=== PATIENT | female | born 2005 | race Caucasian/White ===

== ENCOUNTER 2023-05-14 19:34 | Emergency (ER) | payer SELFPAY ==
[~2023-05-14] VITALS: Ht 167 cm; Wt 127.0 kg
[2023-05-14 20:03] LABS: BASOPHILS # (AUTO) 0.1 10^3/uL (0.0-0.1); BASOPHILS % (AUTO) 1 % (0-10); EOSINOPHILS # (AUTO) 0.3 10^3/uL (0.0-0.3); EOSINOPHILS % (AUTO) 2 % (0-10); HEMATOCRIT 42 % (35-52); HEMOGLOBIN 13.9 g/dL (11.5-16.0); LYMPHOCYTES # (AUTO) 2.6 10^3/uL (1.0-4.0); LYMPHOCYTES % (AUTO) 20 % (12-44); MEAN CORPUSCULAR HEMOGLOBIN 28 pg (25-34); MEAN CORPUSCULAR HGB CONC 33 g/dL (32-36); MEAN CORPUSCULAR VOLUME 87 fL (80-99); MEAN PLATELET VOLUME 9.8 fL (9.0-12.2); MONOCYTES # (AUTO) 1.1 10^3/uL (0.0-1.0); MONOCYTES % (AUTO) 8 % (0-12); NEUTROPHILS # (AUTO) 8.7 10^3/uL (1.8-7.8); NEUTROPHILS % (AUTO) 68 % (42-75); PLATELET COUNT 380 10^3/uL (130-400); WHITE BLOOD COUNT 12.9 10^3/uL (4.3-11.0)
[2023-05-14 20:09] LABS: CHLORIDE 105 MMOL/L (98-107); POTASSIUM 4.1 MMOL/L (3.6-5.0); SODIUM 136 MMOL/L (135-145)
[2023-05-14 20:10] LABS: AMYLASE 44 U/L (25-125); CALCIUM 9.5 MG/DL (8.5-10.1)
[2023-05-14 20:11] LABS: GLUCOSE 155 MG/DL (70-105); TOTAL PROTEIN 7.5 GM/DL (6.4-8.2)
[2023-05-14 20:12] LABS: CARBON DIOXIDE 23 MMOL/L (21-32)
[2023-05-14 20:13] LABS: BILIRUBIN,TOTAL 0.3 MG/DL (0.1-1.0)
[2023-05-14 20:15] LABS: ALKALINE PHOSPHATASE 117 U/L (40-136); GFR ESTIMATED 128
[2023-05-14 20:16] LABS: BUN/CREATININE RATIO 13
[2023-05-14 20:18] LABS: ALANINE AMINOTRANSFERASE 74 U/L (0-55)
[2023-05-14 20:19] LABS: LIPASE 13 U/L (8-78)
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
[2023-05-14] MEDS ORDERED: IOHEXOL 350 MG/ML 100 ML (OMNIPAQUE 350) VIAL IV ONE (20:45)
[2023-05-14] MEDS ORDERED: NS 100 ML (IVPB) BAG IV ONE (20:45)
[2023-05-14 20:51] VITALS: BP 136/102
[2023-05-14 21:03] LABS: AMPHETAMINE SCREEN, URINE NEGATIVE (NEGATIVE); BARBITURATE SCREEN URINE NEGATIVE (NEGATIVE); CANNABINOID SCREEN, URINE NEGATIVE (NEGATIVE); COCAINE SCREEN URINE NEGATIVE (NEGATIVE); METHADONE STAT NEGATIVE (NEGATIVE); OPIATE SCREEN URINE NEGATIVE (NEGATIVE); OXYCODONE STAT NEGATIVE (NEGATIVE); TRICYCLIC ANTIDEPRESSANTS SCRE NEGATIVE (NEGATIVE)
[2023-05-14 21:04] LABS: BILIRUBIN,URINE NEGATIVE (NEGATIVE); CLARITY,URINE CLEAR; COLOR,URINE YELLOW; GLUCOSE, URINE (UA) NEGATIVE (NEGATIVE); KETONES,URINE NEGATIVE (NEGATIVE); LEUKOCYTE ESTERASE ,URINE NEGATIVE (NEGATIVE); NITRITE,URINE NEGATIVE (NEGATIVE); PH,URINE 5.5 (5-9); PROTEIN,URINE NEGATIVE (NEGATIVE); RBC,URINE 0-2 /HPF; WBC,URINE RARE /HPF
[2023-05-14 21:05] LABS: BACTERIA,URINE FEW /HPF; HYALINE CASTS, URINE 0-2 /LPF; SQUAMOUS EPITHELIAL CELL,UR >50 /HPF
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
== END 2023-05-14 22:42 | disposition home or self-care (01) ==
LOC: EEVIPCON 19:38 → ER 19:38
DX: M54.2 Cervicalgia (principal); R07.89 Other chest pain; R10.9 Unspecified abdominal pain; R91.1 Solitary pulmonary nodule; E66.9 Obesity, unspecified; Y04.0XXA Assault by unarmed brawl or fight, initial encounter; Z68.42 Body mass index [BMI] 45.0-49.9, adult
CPT/HCPCS: 70450; 70491; 71045; 71260; 74176; 80053; 80306; 81000; 82150; 83690; 84703; 85025; G0480; 36415; 80320